=== PATIENT | female | born 1985 | race Two or more races ===

== ENCOUNTER 2023-08-26 13:01 | Emergency (ER) | payer MEDICAID, OTHER ==
[~2023-08-26] VITALS: Ht 154.9 cm; Wt 113.5 kg
[2023-08-26 13:15] VITALS: PULSE 100; RESP 18; O2SAT 95
[2023-08-26 13:33] LABS: Basophils # (auto) 0.1 10 ^3/uL (0-0.2); Eosinophils # (auto) 0.1 10 ^3/uL (0-0.8); Eosinophils % (auto) 1.9 % (0.0-7.0); Hematocrit 43.3 % (36.0-46.0); Hemoglobin 14.4 g/dL (12.2-16.2); Lymphocytes # (auto) 1.9 10 ^3/uL (0.4-5.4); Mean Corpuscular Volume 80.9 fL (80.0-100.0); Monocytes # (auto) 0.4 10 ^3/uL (0-1.3); Red Blood Cells 5.36 10^6/uL (4.0-5.20)
[2023-08-26 13:35] LABS: Basophils % (auto) 1.1 % (0.0-2.0); Mean Corpuscular Hgb Conc. 33.3 g/dL (32.0-36.0); Monocytes % (auto) 4.8 % (0.0-12.0); Neutrophils # (auto) 5.1 10 ^3/uL (1.6-8.6); Neutrophils % (auto) 67.2 % (37.0-80.0); Nucleated Red Blood Cells % 0.4 %; Red Cell Distribution Width 13.7 % (11.8-14.3); White Blood Cell 7.6 10^3/uL (4.4-10.8)
[2023-08-26 13:52] LABS: Chloride 105 mmol/L (98-107); Potassium 3.5 mmol/L (3.5-5.1); Sodium 136 mmol/L (136-145)
[2023-08-26 13:53] LABS: Anion Gap 8 (5-15); Carbon Dioxide 23 mmol/L (20-30)
[2023-08-26 13:54] LABS: Calcium 9.5 mg/dL (8.5-10.1)
[2023-08-26 13:58] LABS: Glucose 141 mg/dL (74-106)
[2023-08-26 13:59] LABS: Alkaline Phosphatase 91 U/L (46-116); BUN/Creatinine Ratio 9.5 (10.0-20.0); Blood Urea Nitrogen 6 mg/dL (9-23)
[2023-08-26 14:00] LABS: Albumin 4.3 g/dL (3.2-4.8); Aspartate Aminotransferase 42 U/L (13-40)
[2023-08-26 14:01] LABS: Bilirubin, Total 0.6 mg/dL (0.2-1.0)
[2023-08-26 14:29] LABS: Alanine Aminotransferase 66 U/L (7-40)
[2023-08-26] MEDS ORDERED: SODIUM CHLORIDE 0.9% 1,000 ML IV ONE (15:15)
[2023-08-26] MEDS ORDERED: ASPirin 81 mg TAB PO ONE (15:15)
[2023-08-26] MEDS ORDERED: LORazepam 2MG/ML-1ML VIAL IV ONE (15:15)
[2023-08-26 17:50] LABS: Urine Amorphous Crystal FEW /hpf (None Seen); Urine Bacteria NONE SEEN /hpf (None Seen); Urine Blood 2+ /uL (Negative); Urine Clarity Clear (Clear); Urine Protein, UAD Negative (Negative); Urine Specific Gravity 1.006 (1.001-1.035); Urine Urobilinogen Normal (Negative); Urine WBC 1 /hpf (0 - 5)
[2023-08-26 17:51] LABS: Urine Color STRAW (Yellow)
[2023-08-26 17:59] LABS: Amphetamine Screen, Urine Neg (NEGATIVE); Barbiturate Scree,Urine Neg (NEGATIVE); Benzodiazephine Screen, Urine Neg (NEGATIVE); Cannabinoid Screen, Urine Neg (NEGATIVE); Cocaine Screen, Urine Neg (NEGATIVE); Opiate Scree,Urine Neg (NEGATIVE); Phencyclidine Screen, Urine Neg (NEGATIVE)
[2023-08-26 18:20] VITALS: BP 155/100; PULSE 88; RESP 20; TEMP 98.1; O2SAT 95
== END 2023-08-26 19:04 | disposition home or self-care (01) ==
LOC: ER 13:01
DX: F41.0 Panic disorder [episodic paroxysmal anxiety] (principal); Z79.899 Other long term (current) drug therapy
CPT/HCPCS: 36415; 70450; 71045; 80053; 80307; 80320; 81001; 84484; 85025; 93005; 96361; 96374; 99285; J2060; J7030